=== PATIENT | male | born 1990 | race Caucasian/White ===

== ENCOUNTER → 2019-01-31 | Outpatient (CLI) | payer OTHER | LOC: COL.RAD 13:59 | DX: N50.811 Right testicular pain (principal); Z85.47 Personal history of malignant neoplasm of testis; Z90.79 Acquired absence of other genital organ(s) ==

== ENCOUNTER 2021-06-30 15:59 | Emergency (ER) | payer OTHER ==
[~2021-06-30] VITALS: Ht 180.3 cm; Wt 77.3 kg
[2021-06-30 16:11] VITALS: TEMP 97.5
[2021-06-30] MEDS ORDERED: LYRICA 75MG CAP75 MG PO (16:13)
[2021-06-30] MEDS ORDERED: LYRICA 150MG C150 MG PO (16:14)
[2021-06-30 16:27] LABS: COLLECTION METHOD CLEAN CATCH
[2021-06-30 16:35] LABS: PH 6 (5-8); URINE APPEARANCE Cloudy (CLEAR/HAZY); URINE COLOR Yellow (YELLOW); URINE PROTEIN(semi-quant) 1+ (NEGATIVE)
[2021-06-30 16:36] LABS: URINE BILIRUBIN Negative (NEGATIVE); URINE BLOOD 3+ (NEGATIVE); URINE GLUCOSE Negative (NEGATIVE); URINE KETONE Negative (NEGATIVE); URINE LEUKOCYTE ESTERASE Negative (NEGATIVE); URINE NITRATE Negative (NEGATIVE); URINE UROBILINOGEN Negative (NEGATIVE)
[2021-06-30 16:45] LABS: MUCOUS Present (NOT PRESENT); SQUAMOUS EPITHELIAL None Seen /hpf (0-10); URINE RBC 20-50 /hpf (0-2)
[2021-06-30 17:04] LABS: BASO % 0.3 % (0.0-2.0); EOS % 0.2 % (0.0-4.0); GRAN # 13.5 K/mm3 (1.4-6.5); GRAN % 88.7 % (42.2-75.2); HEMATOCRIT 44.9 % (42.0-52.0); HEMOGLOBIN 14.8 g/dl (13.5-18.0); LYMPH % 6.3 % (20.0-51.0); MEAN CELL VOLUME 79 fl (80.0-100.0); MEAN CORPUSCULAR HEMOGLOBIN 26 pg (27-31); MEAN CORPUSCULAR HGB CONC 33 g/dl (33.0-37.0); MEAN PLATELET VOLUME 10.7 fl (7.4-10.4); MONO # 0.6 K/mm3 (0.1-0.6); MONO % 4.1 % (1.7-9.3); PLATELET COUNT 277 K/mm3 (130-400); RED BLOOD COUNT 5.67 M/mm3 (4.20-5.60); REDCELL DISTRIBUTION WIDTH-CV 13.7 % (11.5-14.5)
[2021-06-30 17:18] LABS: ALBUMIN 4.5 gm/dL (3.5-5.0); BILIRUBIN,TOTAL 0.4 mg/dL (0.2-1.2); CALCIUM 9.1 mg/dL (8.4-10.2); CREATININE, serum 1.02 mg/dL (0.72-1.25); POTASSIUM 3.7 mmol/L (3.5-4.5); TOTAL PROTEIN 6.9 gm/dL (6.2-8.1)
[2021-06-30] MEDS ORDERED: PERCOCET 325 MG1 TA2 PO (17:39)
[2021-06-30 17:59] VITALS: BP 130/80; PULSE 72
== END 2021-06-30 17:59 | disposition home or self-care (01) ==
LOC: COL.ER 15:59
PROVIDERS: Physician Assistant
DX: N13.2 Hydronephrosis with renal and ureteral calculous obstruction (principal)
CPT/HCPCS: J1885; Q9967